=== PATIENT | female | born 2000 | race Caucasian/White ===

== ENCOUNTER 2022-10-02 09:40 | Emergency (ER) | payer OTHER, BC ==
[~2022-10-02] VITALS: Ht 162.6 cm; Wt 84.1 kg
[2022-10-02 09:42] VITALS: BP 156/90
--- NOTE | 2022-10-02 09:48 | NUR ---
PROVIDERS MADE AWARE OF PT IN MEDICAL SCREENING ROOM
--- NOTE | 2022-10-02 10:11 | NUR ---
DR GILBERT AT BEDSIDE
[2022-10-02] MEDS ORDERED: CYCL-1 PO (10:17)
[2022-10-02] MEDS ORDERED: naproxen 500mg tablet PO ONE (10:20)
== END 2022-10-02 10:29 | disposition home or self-care (01) ==
LOC: ER 09:41
DX: M79.18 Myalgia, other site (principal); M54.2 Cervicalgia; M54.6 Pain in thoracic spine; R51.9 Headache, unspecified; Z79.899 Other long term (current) drug therapy; V87.7XXA Person injured in collision between other specified motor vehicles (traffic), initial encounter; Y93.89 Activity, other specified; Y92.488 Other paved roadways as the place of occurrence of the external cause; Y99.8 Other external cause status
CPT/HCPCS: 99283